=== PATIENT | female | born 1990 | race Caucasian/White ===

== ENCOUNTER 2019-09-24 13:46 | Emergency (ER) | payer OTHER, SELFPAY ==
[2019-09-24 13:59] VITALS: BP 133/86; PULSE 77; RESP 19; TEMP 36.6; O2SAT 100; BMI 23.1
[2019-09-24 14:03] LABS: Apearance,Urine Cloudy (Clear); Color,Urine Yellow (Yellow)
[2019-09-24 14:04] LABS: Glucose,Urine (UA) Negative (Negative); Ketones,Urine Negative (Negative)
[2019-09-24 14:05] LABS: Bilirubin,Urine Negative (Negative); Blood, Urine 2+ (Negative); Protein,Urine 1+ (Negative); UTC Leukocyte Esterase,Urine 3+ (Negative); UTC Nitrate,Urine Negative (Negative); Urobilinogen,Urine 0.2 EU/dl (0.2)
--- NOTE | 2019-09-24 14:13 | HMH.EDUTC ---
[facility] [place]ression: UTI (urinary tract infection) Qualifiers: Urinary tract infection type: site unspecified Hematuria presence: with hematuria Qualified Code(s): N39.0 - Urinary tract infection, site not specified Disposition: Home, Self-Care Condition on Discharge: Good Instructions: Urinary Tract Infection, DI for Urinary Tract Infection (UTI), Nitrofurantoin Additional Instructions: *Increase fluids. Water not Soda or Tea *Start antibiotic immediately and be sure to take as ordered for the FULL length of time although you should start to see improvement over the next 48 hours *Pyridium as needed Remember this medication will turn your urine [place]. This is normal but it will stain what ever it gets on *You should not use Pyridium for more than 48 hours. If so , follow up with your primary physician to review urine culture and ensure that antibiotic is adequate for infection *Be SURE to follow up anytime for new or worsening symptoms with your family doctor. AND in 48 hours for urine culture results with your family doctor, if you do not have a doctor then you may call back to the [facility] for urine culture results and further treatment. We do recommend that you choose and establish care with a Primary Care Physician. AND follow up with them in 10-14 days to repeat UA to ensure infection is resolved and blood no longer present *Be sure to let your PCP know that we sent urine cultures from the [facility] so they can follow up to ensure that you area the on the correct antibiotic Call your doctor office and make appointment for 48 hours (2 days from today) to follow up and get the results of your urine culture and further treatment Return if needed Straight to ER if any life threatening symptoms Prescriptions: Nitrofurantoin Monohyd/M-Cryst [Macrobid 100 mg Capsule] 100 mg PO BID 10 Days #20 cap Transmission Status: Received by [id number] Phenazopyridine HCl [Pyridium 200mg Tablet] 200 pow PO TID #6 tab Transmission Status: Received by [id number] Referrals: Saravanan Wagner MD [Primary Care Provider] - Medical Decision Making - Cal Inquiry Pt receiving controlled substance: No Cal was queried for this patient: No Vital Signs: 09/24/19 13:59 09/24/19 14:27 Temperature 97.8 F 97.8 F Temperature Source Oral Pulse Rate 77 Pulse Rate [Right Brachial] 77 Respiratory Rate 19 19 Blood Pressure 133/86 Blood Pressure [Right Arm] 133/86 Blood Pressure Mean [Right Arm] 101 Blood Pressure Source [Right Arm] Automatic Cuff Blood Pressure Position [Right Arm] Sitting 02 Sat by Pulse Oximetry 100 Oxygen Delivery Method Room Air - Lab Data Lab results reviewed: Yes: I reviewed the patient's lab results. Lab Results 09/24/19 13:49: Urine Color Yellow, Urine Appearance Cloudy, Urine pH 7.0, Ur Specific [place] 1.020, Urine Protein 1+, Urine Glucose (UA) Negative, Urine Ketones Negative, Urine Blood 2+, Urine Nitrate Negative, Urine Bilirubin Negative, Urine Urobilinogen 0.2, Ur Leukocyte Esterase 3+ A Orders (Tests/Meds): ED MEDICATIONS Discontinued Medications Generic Name Dose Route Start Last Admin Trade Name Freq PRN Reason Stop Dose Admin Ceftriaxone Sodium 1 gm 09/24/19 14:24 09/24/19 14:26 Rocephin 1gm Vial IM 09/24/19 14:25 1 gm ONCE ONE Administration Protocol Lidocaine HCl 0 ml 09/24/19 14:24 09/24/19 14:26 Lidocaine 1% 10ml Mdv IM 09/24/19 14:25 2.1 ml ONCE ONE Administration ORDERS Category Date Time Status Urine Culture Stat Micro 09/24/19 14:00 [place] [facility] [place] - General Stated complaint: uti Time Seen by Provider: 09/24/19 14:13 Mode of Arrival: Ambulatory Source of Information: Patient Limitations: No Limitations Description of Symptoms (Recalled from Triage Doc. by RN): PATIENT C/O BURNING WITH URINATION AND URINARY FREQUENCY SINCE SUNDAY HE Symptoms (Recalled from RN notes): No Resp Symptoms (
[2019-09-24 14:27] VITALS: BP 133/86; PULSE 77; RESP 19; TEMP 36.6; O2SAT 100
== END 2019-09-24 14:30 | disposition home or self-care (01) ==
PROVIDERS: Emergency Provider Nurse Practitioner; PCP Family Medicine
DX: N30.00 Acute cystitis without hematuria (principal)
CPT/HCPCS: 81003; 87086; 87088; 87186; 96372; 99202

== ENCOUNTER 2019-11-23 16:08 | Emergency (ER) | payer OTHER, SELFPAY ==
--- NOTE | 2019-11-23 16:41 | HMH.EDUTC ---
[facility] [place] Clinical Impression: UTI (urinary tract infection) Qualifiers: Urinary tract infection type: acute cystitis Hematuria presence: without hematuria Qualified Code(s): N30.00 - Acute cystitis without hematuria Disposition: Home, Self-Care Condition on Discharge: Good Instructions: DI for Urinary Tract Infection (UTI) Additional Instructions: Increase fluids. Follow up with Dr Wagner for culture results. Prescriptions: Ciprofloxacin HCl [Cipro 500mg Tab] 500 mg PO BID 5 Days #10 tab Transmission Status: Received by [id number] Phenazopyridine HCl [Pyridium 200mg Tablet] 200 pow PO TID #6 tab Transmission Status: Received by [id number] Referrals: Saravanan Wagner MD [Primary Care Provider] - Time of Disposition: 16:49 Medical Decision Making - Cal Inquiry Pt receiving controlled substance: No - Lab Data Lab results reviewed: Yes: I reviewed the patient's lab results. [facility] [place] - General Stated complaint: Possible UTI Time Seen by Provider: 11/23/19 16:41 - History of Present Illness Provider Complaint: Dysuria and frequency X 1 day. No fever. No nausea or vomiting. Onset (ago): day(s) (1) Associated symptoms: denies other symptoms Treatments prior to arrival: none - Related Data Previous Rx's Medication Instructions Recorded Nitrofurantoin Monohyd/M-Cryst 100 mg PO BID 10 Days #20 cap 09/24/19 [Macrobid 100 mg Capsule] Phenazopyridine HCl [Pyridium 200 pow PO TID #6 tab 09/24/19 200mg Tablet] Ciprofloxacin HCl [Cipro 500mg 500 mg PO BID 5 Days #10 tab 11/23/19 Tab] Phenazopyridine HCl [Pyridium 200 pow PO TID #6 tab 11/23/19 200mg Tablet] Allergies Allergy/AdvReac Type Severity Reaction Status Date / Time No Known Allergies Allergy Verified 11/25/18 14:58 [facility] History - Hepatitis A Screen Attestation statement:: This patient has been screened for Hepatitis A risk factors. I have reviewed the patient's past medical history: Yes Medical History: Denies:: Diabetes Mellitus Type 2, Hypertension Other Surgeries: Yes: - Social History Smoking Status: Never smoker Alcohol Intake: never Alcohol Intake Frequency:: a few times a month Substance Use Type: denies use Occupational Status: other Family Hx:: No significant family history ROS Obtained: Yes All systems reviewed & no additional complaints - Genitourinary Female Genitourinary: Reports dysuria Physical Exam - General General appearance: alert, in no apparent distress - Head Head exam: atraumatic, normocephalic - Respiratory Respiratory exam: Present: normal lung sounds bilaterally - Cardiovascular Cardiovascular exam: Present: regular rate, normal rhythm - Abdominal Exam Abdominal exam: Present: soft - Back Exam Back exam: Absent: CVA tenderness (R), CVA tenderness (L) - Neurological Exam Neurological exam: Present: alert, oriented X3 - Psychiatric Psychiatric exam: Present: normal affect, normal mood
[2019-11-23 16:45] VITALS: BP 138/83; PULSE 81; RESP 14; TEMP 37; O2SAT 99; BMI 22.8
[2019-11-23 16:57] VITALS: BP 138/83; PULSE 81; RESP 14; TEMP 37; O2SAT 99
[2019-11-23 18:32] LABS: Apearance,Urine Clear (Clear); Color,Urine Amber (Yellow); Specific Gravity, Urine 1.025 (1.005-1.030)
[2019-11-23 18:33] LABS: Bilirubin,Urine Negative (Negative); Blood, Urine Trace (Negative); Glucose,Urine (UA) Negative (Negative); Ketones,Urine TRACE (Negative); Protein,Urine 1+ (Negative); UTC Leukocyte Esterase,Urine Negative (Negative); Urobilinogen,Urine 1 EU/dl (0.2)
[2019-11-23 18:34] LABS: UTC Nitrate,Urine Positive (Negative)
== END 2019-11-23 17:03 | disposition home or self-care (01) ==
PROVIDERS: Emergency Provider Physician Assistant; PCP Family Medicine
DX: N30.00 Acute cystitis without hematuria (principal)
CPT/HCPCS: 81003; 87086; 99201

== ENCOUNTER → 2020-01-09 09:16 | Outpatient (CLI) | payer OTHER, SELFPAY ==
[2020-01-09 10:44] LABS: HCG Qualitative, Serum Negative (Negative)
[2020-01-10 10:16] LABS: Hep A Ab, IgM Negative (Negative); Hepatitis B Core Antibody IgM Negative (Negative); Hepatitis B Surface Antigen Negative (Negative)
[2020-01-10 14:54] LABS: HIV Screen 4th Generation wRfx Non Reactive (Non Reactive); HSV 1 IgG, Type Spec <0.91 index (0.00-0.90); HSV 2 IgG, Type Spec <0.91 index (0.00-0.90); Hepatitis C Antibody <0.1 s/co ratio (0.0-0.9); Rapid Plasma Reagin Ab Titer Non Reactive (NonRea<1:1)
[2020-01-13 15:21] LABS: Neisseria gonorrhoeae, NAA Negative (Negative)
[2020-01-15 09:24] LABS: HSV, IgM I/II Combination <0.91 Ratio (0.00-0.90)
== END ==
PROVIDERS: Visit Provider Nurse Practitioner Obstetrics & Gynecology
DX: Z34.90 Encounter for supervision of normal pregnancy, unspecified, unspecified trimester (principal); Z72.51 High risk heterosexual behavior
CPT/HCPCS: 80074; 84703; 86592; 86695; 86703; 86790; 87491; 87591; G0432

== ENCOUNTER 2020-01-21 18:32 | Emergency (ER) | payer OTHER, SELFPAY ==
[2020-01-21 18:42] VITALS: BP 136/83; PULSE 81; RESP 20; TEMP 36.7; O2SAT 97; BMI 23.9
[2020-01-21 18:51] LABS: Apearance,Urine Clear (Clear); Bilirubin,Urine Negative (Negative); Blood, Urine Negative (Negative); Color,Urine Yellow (Yellow); Glucose,Urine (UA) Negative (Negative); Ketones,Urine Negative (Negative); Protein,Urine Negative (Negative); UTC Leukocyte Esterase,Urine 1+ (Negative); UTC Nitrate,Urine Positive (Negative); Urobilinogen,Urine 0.2 EU/dl (0.2)
--- NOTE | 2020-01-21 19:09 | HMH.EDUTC ---
[facility] [place] Clinical Impression: UTI (urinary tract infection) Qualifiers: Urinary tract infection type: site unspecified Hematuria presence: with hematuria Qualified Code(s): N39.0 - Urinary tract infection, site not specified Disposition: Home, Self-Care Condition on Discharge: Good Instructions: DI for Urinary Tract Infection (UTI) Additional Instructions: Drink plenty of fluids. Take tylenol for pain or fever. Return if you begin to have difficulty breathing. Follow up with your regular doctor. GO TO THE ER FOR ANY WORSENING SYMPTOMS The pyridium will make your urine turn orange, this is an expected side effect. It will stain your clothes if it comes into contact with them. Prescriptions: Ondansetron [Zofran 4mg ODT] 4 mg PO Q8HP PRN #12 tab.rapdis PRN Reason: Nausea Transmission Status: Received by [facility] Sulfamethoxazole/Trimethoprim [Bactrim DS tablet] 1 each PO BID 7 Days #14 tab Transmission Status: Received by [facility] Phenazopyridine HCl [Pyridium 200mg Tablet] 200 pow PO TID #6 tab Transmission Status: Received by [facility] Referrals: Saravanan Wagner MD [Primary Care Provider] - Time of Disposition: 19:17 Medical Decision Making - Medical Records Medical records reviewed: No: I reviewed the patient's medical records. - Cal Inquiry Pt receiving controlled substance: No Vital Signs: 01/21/20 18:42 Temperature 98.0 F Temperature Source Oral Pulse Rate [Radial] 81 Respiratory Rate 20 Blood Pressure [Right Arm] 136/83 Blood Pressure Mean [Right Arm] 100 Blood Pressure Source [Right Arm] Automatic Cuff Blood Pressure Position [Right Arm] Sitting 02 Sat by Pulse Oximetry 97 Oxygen Delivery Method Room Air - Lab Data Lab results reviewed: Yes: I reviewed the patient's lab results. Lab Results 01/21/20 18:36: Urine Color Yellow, Urine Appearance Clear, Urine pH 6.0, Ur Specific [place] 1.010, Urine Protein Negative, Urine Glucose (UA) Negative, Urine Ketones Negative, Urine Blood Negative, Urine Nitrate Positive A, Urine Bilirubin Negative, Urine Urobilinogen 0.2, Ur Leukocyte Esterase 1+ A Orders (Tests/Meds): ORDERS Category Date Time Status Urine Culture Stat Micro 01/21/20 19:07 Ordered [facility] [place] HPI - General Stated complaint: Burning when urinating Time Seen by Provider: 01/21/20 19:09 Mode of Arrival: Ambulatory Source of Information: Patient Limitations: No Limitations Description of Symptoms (Recalled from Triage Doc. by RN): Possible uti. Burning with urination HEENT Symptoms (Recalled from RN notes): No Resp Symptoms (Recalled from RN notes): No Skin Symptoms (Recalled from RN notes): No MS Symptoms (Recalled from RN notes): No Functional Status (Recalled from RN notes): wnl - History of Present Illness Provider Complaint: She c/o low back pain and dysuria since yesterday. She has a history of getting uti's fairly frequently. - Related Data Home Medications Medication Instructions Recorded Confirmed levonorgestrel-ethinyl estradiol 1 tab PO DAILY tab 01/09/20 01/09/20 0.1 mg-20 mcg tablet sertraline 100 mg tablet 100 mg PO DAILY 01/09/20 01/09/20 Previous Rx's Medication Instructions Recorded valacyclovir 1 gram tablet 1,000 mg PO BID 10 Days #20 tab 01/09/20 valacyclovir 500 mg tablet 500 mg PO DAILY #30 tab 01/09/20 Ondansetron [Zofran 4mg ODT] 4 mg PO Q8HP PRN #12 tab.rapdis 01/21/20 Phenazopyridine HCl [Pyridium 200 pow PO TID #6 tab 01/21/20 200mg Tablet] Sulfamethoxazole/Trimethoprim 1 each PO BID 7 Days #14 tab 01/21/20 [Bactrim DS tablet] Allergies Allergy/AdvReac Type Severity Reaction Status Date / Time peanut Allergy Intermediate Hives, Verified 01/09/20 08:54 Itchy throat corn Allergy Verified 01/09/20 08:54 wheat Allergy Verified 01/09/20 08:54 - Worker's Comp Is this a Worker's Comp case?: No [facility] History - He
[2020-01-21 19:20] VITALS: BP 136/83; PULSE 81; RESP 20; TEMP 36.7; O2SAT 97
== END 2020-01-21 19:21 | disposition home or self-care (01) ==
PROVIDERS: Emergency Provider Nurse Practitioner Family; PCP Family Medicine
DX: N30.00 Acute cystitis without hematuria (principal)
CPT/HCPCS: 81003; 87086; 99201

== ENCOUNTER 2020-07-05 10:23 | Emergency (ER) | payer OTHER, SELFPAY ==
[2020-07-05 10:30] VITALS: BP 133/90; PULSE 83; RESP 18; TEMP 37.1; O2SAT 99; BMI 23.3
[2020-07-05 10:48] LABS: UTC Strep Screen (Rapid) Negative (Negative)
--- NOTE | 2020-07-05 10:48 | HMH.EDUTC ---
[facility] [place] Clinical Impression: Strep throat exposure, Sore throat Disposition: Home, Self-Care Condition on Discharge: Good Instructions: DI for Strep Throat Additional Instructions: Start antibiotics today be sure to take it as ordered with the full length of time although you should start feeling better in 24-48 hours. Change toothbrush and toothpaste 24-48 hours after starting antibiotics Tylenol or Motrin as needed for fever or pain Encourage fluids, water, Gatorade, Powerade, try cold fluids, popsicles, ice cream will make it feel better You are contagious for 24 hours. Avoid kissing anyone, no eating or drinking after anyone. You are contagious. Follow-up the ER for new or worsening symptoms or no noticeable improvement over the next 24-48 hours. Follow-up with PCP this week. Prescriptions: Azithromycin [Zithromax 250mg tab] 250 mg PO DIRECTED #6 tab Transmission Status: Pending to [facility] Referrals: Saravanan Wagner MD [Primary Care Provider] - Time of Disposition: 10:54 Medical Decision Making - Cal Inquiry Pt receiving controlled substance: No Vital Signs: 07/05/20 10:30 Temperature 98.7 F Temperature Source Oral Pulse Rate [Right Brachial] 83 Respiratory Rate 18 Blood Pressure [Right Arm] 133/90 Blood Pressure Mean [Right Arm] 104 Blood Pressure Source [Right Arm] Automatic Cuff Blood Pressure Position [Right Arm] Sitting 02 Sat by Pulse Oximetry 99 Oxygen Delivery Method Room Air [facility] [place] HPI - General Chief complaint: Urgent Treatment Center Stated complaint: sore throat Time Seen by Provider: 07/05/20 10:48 Mode of Arrival: Ambulatory Source of Information: Patient Limitations: No Limitations Description of Symptoms (Recalled from Triage Doc. by RN): PATIENT C/O HEADACHE AND SORE THROAT SINCE SUNDAY. RECENTLY EXPOSED TO STREP HEENT Symptoms (Recalled from RN notes): Yes Resp Symptoms (Recalled from RN notes): No Skin Symptoms (Recalled from RN notes): No MS Symptoms (Recalled from RN notes): No Functional Status (Recalled from RN notes): WNL - History of Present Illness Provider Complaint: 29 yr old female presents for sore throat and headache since sunday. pt states her kid was dx with strep last week and one today - Related Data Home Medications Medication Instructions Recorded Confirmed levonorgestrel-ethinyl estradiol 1 tab PO DAILY tab 01/09/20 01/09/20 0.1 mg-20 mcg tablet sertraline 100 mg tablet 100 mg PO DAILY 01/09/20 01/09/20 Previous Rx's Medication Instructions Recorded valacyclovir 1 gram tablet 1,000 mg PO BID 10 Days #20 tab 01/09/20 valacyclovir 500 mg tablet 500 mg PO DAILY #30 tab 01/09/20 Ondansetron [Zofran 4mg ODT] 4 mg PO Q8HP PRN #12 tab.rapdis 01/21/20 Phenazopyridine HCl [Pyridium 200 pow PO TID #6 tab 01/21/20 200mg Tablet] Sulfamethoxazole/Trimethoprim 1 each PO BID 7 Days #14 tab 01/21/20 [Bactrim DS tablet] Azithromycin [Zithromax 250mg 250 mg PO DIRECTED #6 tab 07/05/20 tab] Allergies Allergy/AdvReac Type Severity Reaction Status Date / Time peanut Allergy Intermediate Hives, Verified 01/09/20 08:54 Itchy throat corn Allergy Verified 01/09/20 08:54 wheat Allergy Verified 01/09/20 08:54 - Worker's Comp Is this a Worker's Comp case?: No [facility] History - Hepatitis A Screen Drug use history?: No High risk sexual behaviors?: No History of sexually transmitted infection?: No Currently employed?: No Childcare worker?: No Do you have indoor plumbing?: Yes Do you have electricity?: Yes Attestation statement:: This patient has been screened for Hepatitis A risk factors. I have reviewed the patient's past medical history: Yes Medical History: Denies:: Diabetes Mellitus Type 2, Hypertension Other Surgeries: Yes: - Social History Smoking Status: Never smoker Alcohol Intake: never Alcohol Intake Frequency:: a few times a month Substance Use
[2020-07-05 11:05] VITALS: BP 133/90; PULSE 83; RESP 18; TEMP 37.1; O2SAT 99
== END 2020-07-05 11:07 | disposition home or self-care (01) ==
PROVIDERS: Emergency Provider Nurse Practitioner Family; PCP Family Medicine
DX: J02.9 Acute pharyngitis, unspecified (principal)
CPT/HCPCS: 87880; 99202; G0463

== ENCOUNTER 2020-08-07 09:24 | Emergency (ER) | payer OTHER, SELFPAY ==
[2020-08-07 09:25] VITALS: BP 140/87; PULSE 88; RESP 19; TEMP 36.8; O2SAT 98; BMI 25.1
[2020-08-07 09:48] LABS: UTC Strep Screen (Rapid) Negative (Negative)
--- NOTE | 2020-08-07 09:49 | HMH.EDUTC ---
[facility] [place]ression: URI (upper respiratory infection) Qualifiers: URI type: unspecified URI Qualified Code(s): J06.9 - Acute upper respiratory infection, unspecified Disposition: Home, Self-Care Condition on Discharge: Good Instructions: DI for Strep Throat, Sore Throat, DI for Ear Pain-Adult Additional Instructions: *Monitor Temp, Over the counter Motrin or Tylenol as directed/as needed Tylenol every 4 hours and Motrin every 6 hours (as long as your family doctor has told you that you can take it) for fever or pain. and straight to ER if unable to lower temp less than 101.0 after medication given *Warm salt water gargles may help to soothe the throat *Throat Lozenges *Warm fluids like tea with honey may help to soothe the throat *Sleep elevated *Humidifier/Vaporizer Your throat swab was sent for culture. Those results are typically sent to your primary care. Be sure to follow up in 2-3 days with your family doctor/primary care physician if no improvement so they can review those result and treat if necessary. If you don?t have a primary care doctor, I recommend you get one but in the mean time, you will have to return to a walk in clinic Follow up IMMEDIATELY for new or worsening symptoms or no Noticeable improvement over the next 48-72 hours. 911 for difficulty breathing or swallowing Prescriptions: Fluticasone Propionate [Flonase 50mcg nasal spray 16gm] 1 spr NS DAILY #1 bottle Transmission Status: Pending to [facility] Cefdinir [Omnicef 300mg Capsule] 300 mg PO BID #20 cap Transmission Status: Pending to [facility] Referrals: Saravanan Wagner MD [Primary Care Provider] - As needed Time of Disposition: 09:55 Medical Decision Making - Cal Inquiry Pt receiving controlled substance: No Cal was queried for this patient: No Vital Signs: 08/07/20 09:25 Temperature 98.2 F Temperature Source Oral Pulse Rate [Right Brachial] 88 Respiratory Rate 19 Blood Pressure [Right Arm] 140/87 Blood Pressure Mean [Right Arm] 104 Blood Pressure Source [Right Arm] Automatic Cuff Blood Pressure Position [Right Arm] Sitting 02 Sat by Pulse Oximetry 98 Oxygen Delivery Method Room Air - Lab Data Lab results reviewed: Yes: I reviewed the patient's lab results. Lab Results 08/07/20 09:30: Strep Scn Rapid Clinic Negative Orders (Tests/Meds): ORDERS Category Date Time Status Strep Screen Confirmation Stat Micro 08/07/20 09:30 Received Medical Decision Narrative: Patient rapid strep negative however patient has white patchy like area noted on left side of throat therefore will treat as if strep test positive [facility] [place] General Stated complaint: sore throat Time Seen by Provider: 08/07/20 09:49 Mode of Arrival: Ambulatory Source of Information: Patient Limitations: No Limitations Description of Symptoms (Recalled from Triage Doc. by RN): PATIENT C/O SORE THROAT (LEFT SIDE) HEENT Symptoms (Recalled from RN notes): Yes Resp Symptoms (Recalled from RN notes): No Skin Symptoms (Recalled from RN notes): No MS Symptoms (Recalled from RN notes): No Functional Status (Recalled from RN notes): WNL - History of Present Illness Provider Complaint: Patient states that she has been having pain in her left ear for over a week and having sore throat that was worse on left side of throat State that it has continued to get worse and today felt like she was swallowing glass and still having pain in her left ear - Related Data Previous Rx's Medication Instructions Recorded Cefdinir [Omnicef 300mg Capsule] 300 mg PO BID #20 cap 08/07/20 Fluticasone Propionate [Flonase 1 spr NS DAILY #1 bottle 08/07/20 50mcg nasal spray 16gm] Allergies Allergy/AdvReac Type Severity Reaction Status Date / Time peanut Allergy Intermediate Hives, Verified 01/09/20 08:54 Itchy throat corn Allergy Verified 01/09/20 08:54 wheat Allergy Verified 01/09/20 08:5
[2020-08-07 10:02] VITALS: BP 140/87; PULSE 88; RESP 19; TEMP 36.8; O2SAT 98
== END 2020-08-07 10:05 | disposition home or self-care (01) ==
PROVIDERS: Emergency Provider Nurse Practitioner; PCP Family Medicine
DX: J06.9 Acute upper respiratory infection, unspecified (principal); J02.9 Acute pharyngitis, unspecified
CPT/HCPCS: 87880; 99202; G0463

== ENCOUNTER 2020-10-28 11:21 | Emergency (ER) | payer OTHER, SELFPAY ==
[2020-10-28 13:02] VITALS: BP 123/74; PULSE 59; RESP 16; TEMP 36.9; O2SAT 100; BMI 24.7
[2020-10-28 13:05] VITALS: BP 123/74; PULSE 59; RESP 18; TEMP 36.9
--- NOTE | 2020-10-28 13:21 | HMH.EDUTC ---
[facility] – [place] Disposition Clinical Impression: Viral syndrome, Exposure to COVID-19 virus Disposition: Home, Self-Care Condition on Discharge: Good Instructions: DI for Viral Syndrome, DI for COVID-19 (Suspected or Confirmed ), Preventing the Spread of Coronavirus Discharge Instructions Additional Instructions: Drink plenty of fluids. Take tylenol for pain or fever. Return if you begin to have difficulty breathing. Follow up with your regular doctor. GO TO THE ER FOR ANY WORSENING SYMPTOMS Quarantine until you know the results of your covid-19 test. If it is positive, the health department should call you and give you further instructions about your length of Quarantine and other things. Notify your school or workplace of your results and follow their instructions regarding return to work/school. Referrals: Saravanan Wagner MD [Primary Care Provider] - Forms: Work/School Release Time of Disposition: 13:26 Medical Decision Making - Medical Records Medical records reviewed: No: I reviewed the patient's medical records. - Cal Inquiry Pt receiving controlled substance: No Vital Signs: 10/28/20 13:02 10/28/20 13:05 Temperature 98.4 F 98.4 F Temperature Source Oral Pulse Rate 59 L Pulse Rate [Left] 59 L Respiratory Rate 16 18 Blood Pressure 123/74 Blood Pressure [Right Arm] 123/74 Blood Pressure Mean [Right Arm] 90 02 Sat by Pulse Oximetry 100 [facility] [place] HPI - General Stated complaint: covid test/symptoms Time Seen by Provider: 10/28/20 13:21 Mode of Arrival: Ambulatory Source of Information: Patient Limitations: No Limitations Description of Symptoms (Recalled from Triage Doc. by RN): pt was exposed to covid HEENT Symptoms (Recalled from RN notes): No Resp Symptoms (Recalled from RN notes): No Skin Symptoms (Recalled from RN notes): No MS Symptoms (Recalled from RN notes): No Functional Status (Recalled from RN notes): na - History of Present Illness Provider Complaint: Her child was diagnosed with rhinovirus last week. She developed similar symptoms after her child was diagnosed, so she thought that she just had a cold. But, yesterday she found out that she has been exposed to covid-19 also, so she needs to be tested for this to make sure she is carrying covid around. She states that her symptoms are almost better. Onset (ago): hour(s) - Related Data Home Medications Medication Instructions Recorded Confirmed levonorgestrel-ethinyl estradiol 1 tab PO tab 10/19/20 10/19/20 0.1 mg-20 mcg tablet Previous Rx's Medication Instructions Recorded Fluticasone Propionate [Flonase 1 spr NS DAILY #1 bottle 08/07/20 50mcg nasal spray 16gm] Allergies Allergy/AdvReac Type Severity Reaction Status Date / Time peanut Allergy Intermediate Hives, Verified 10/19/20 09:17 Itchy throat corn Allergy Verified 10/19/20 09:17 wheat Allergy Verified 10/19/20 09:17 - Worker's Comp Is this a Worker's Comp case?: No [facility] History - Hepatitis A Screen Drug use history?: No High risk sexual behaviors?: No History of sexually transmitted infection?: No Currently employed?: No Childcare worker?: No Do you have indoor plumbing?: Yes Do you have electricity?: Yes Attestation statement:: This patient has been screened for Hepatitis A risk factors. I have reviewed the patient's past medical history: Yes Medical History: Denies:: Diabetes Mellitus Type 2, Hypertension Other Surgeries: Yes: - Social History Smoking Status: Never smoker Alcohol Intake: never Alcohol Intake Frequency:: a few times a month Substance Use Type: denies use Occupational Status: other Family Hx:: No significant family history ROS Obtained: Yes All systems reviewed & no additional complaints - Constitutional Constitutional: Reports system reviewed and no additional complaints, except as docu - Eyes Eyes: Reports system reviewed and no additional complaints, except as doc
--- NOTE | 2020-10-29 09:45 | PC.NURSE ---
notified pt of positive covid test result
== END 2020-10-28 13:38 | disposition home or self-care (01) ==
PROVIDERS: Emergency Provider Nurse Practitioner Family; PCP Family Medicine
DX: B34.9 Viral infection, unspecified (principal); Z20.822 Contact with and (suspected) exposure to COVID-19
CPT/HCPCS: 99202; G0463; U0003

== ENCOUNTER 2021-02-17 10:10 | Emergency (ER) | payer OTHER, SELFPAY ==
[2021-02-17 10:59] VITALS: BP 124/83; PULSE 64; RESP 18; TEMP 37.1; O2SAT 100; BMI 22.4
--- NOTE | 2021-02-17 11:40 | HMH.EDUTC ---
[facility] [place] Disposition Clinical Impression: Viral syndrome, Exposure to COVID-19 virus Sinusitis Qualifiers: Sinusitis location: unspecified location Chronicity: acute Recurrence: non-recurrent Qualified Code(s): J01.90 - Acute sinusitis, unspecified Disposition: Home, Self-Care Condition on Discharge: Good Instructions: DI for Sinusitis, DI for COVID-19 (Suspected or Confirmed ), Preventing the Spread of Coronavirus Discharge Instructions Additional Instructions: Drink plenty of fluids. Take tylenol or ibuprofen for pain or fever. Take the medications as directed. Follow up with your regular doctor. GO TO THE ER FOR ANY WORSENING SYMPTOMS Quarantine until you know the results of your covid-19 test. If it is positive, the health department should call you and give you further instructions about your length of Quarantine and other things. Notify your school or workplace of your results and follow their instructions regarding return to work/school. Prescriptions: Brompheniramine/Pseudoephed/Dm [Bromfed Dm Cough Syrup] 5 ml PO Q6HP PRN #240 ml PRN Reason: Cough Transmission Status: Received by [facility] methylPREDNISolone [Medrol] 4 mg PO DIRECTED 6 Days #21 packet Transmission Status: Received by [facility] Azithromycin [Z-Shimon 250mg Tab*] 250 mg PO UD DOSE PK #6 tab Transmission Status: Received by [facility] Referrals: Saravanan Wagner MD [Primary Care Provider] - Forms: Work/School Release Time of Disposition: 12:18 Medical Decision Making - Medical Records Medical records reviewed: No: I reviewed the patient's medical records. - Cal Inquiry Pt receiving controlled substance: No Vital Signs: 02/17/21 10:59 02/17/21 12:31 Temperature 98.7 F 98.7 F Temperature Source Oral Pulse Rate 64 Pulse Rate [Right] 64 Respiratory Rate 18 18 Blood Pressure 124/83 Blood Pressure [Right Arm] 124/83 Blood Pressure Mean [Right Arm] 96 02 Sat by Pulse Oximetry 100 - Lab Data Lab results reviewed: Yes: I reviewed the patient's lab results. Lab Results 02/17/21 11:52: Strep Scn Rapid Clinic Negative Orders (Tests/Meds): ORDERS Category Date Time Status Strep Screen Confirmation Routine Micro 02/17/21 11:52 Received [facility] [place] HPI - General Stated complaint: congestion, h/a, body aches Time Seen by Provider: 02/17/21 11:40 Mode of Arrival: Ambulatory Source of Information: Patient Limitations: No Limitations Description of Symptoms (Recalled from Triage Doc. by RN): pt c/o a COLE, congestion, nasal drainage, and body aches since yesterday. pt was exposed to covid positive boss. pt was covid positive herself in october. HEENT Symptoms (Recalled from RN notes): Yes (COLE and congestion/drainage) Resp Symptoms (Recalled from RN notes): No Skin Symptoms (Recalled from RN notes): No MS Symptoms (Recalled from RN notes): No Functional Status (Recalled from RN notes): wnl - History of Present Illness Provider Complaint: She states that for the past 2 days she has been getting more congestion in her sinuses and chest. She also has had body aches and chilling, but no documented fever. She was exposed to covid-19 5 days ago. She had covid-19 back at the last of September and first of October. She states that she does not feel like she did when she had covid-19. She has not been vaccinated against covid-19. - Related Data Home Medications Medication Instructions Recorded Confirmed levonorgestrel-ethinyl estradiol 1 tab PO tab 10/19/20 10/19/20 0.1 mg-20 mcg tablet Previous Rx's Medication Instructions Recorded Fluticasone Propionate [Flonase 1 spr NS DAILY #1 bottle 08/07/20 50mcg nasal spray 16gm] Azithromycin [Z-Shimon 250mg Tab*] 250 mg PO UD DOSE PK #6 tab 02/17/21 Brompheniramine/Pseudoephed/Dm 5 ml PO Q6HP PRN #240 ml 02/17/21 [Bromfed Dm Cough Syrup] methylPREDNISolone [Medrol] 4 mg PO DIRECTED 6 Days #21 02/17/21 packe
[2021-02-17 11:59] LABS: UTC Strep Screen (Rapid) Negative (Negative)
[2021-02-17 12:31] VITALS: BP 124/83; PULSE 64; RESP 18; TEMP 37.1
== END 2021-02-17 12:32 | disposition home or self-care (01) ==
PROVIDERS: Emergency Provider Nurse Practitioner Family; PCP Family Medicine
DX: J02.0 Streptococcal pharyngitis (principal); Z20.822 Contact with and (suspected) exposure to COVID-19
CPT/HCPCS: 87880; 99203; C9803; G0463; U0003; U0005

== ENCOUNTER 2021-05-05 10:22 | Emergency (ER) | payer OTHER, SELFPAY ==
[2021-05-05 11:00] VITALS: BP 133/87; PULSE 71; RESP 18; TEMP 36.9; O2SAT 96; BMI 22.1
[2021-05-05 11:21] VITALS: BP 133/87; PULSE 71; RESP 18; TEMP 36.9; O2SAT 96
--- NOTE | 2021-05-05 11:24 | HMH.EDUTC ---
[facility] [place] Disposition Clinical Impression: Encounter for laboratory testing for COVID-19 virus Disposition: Home, Self-Care Condition on Discharge: Good Instructions: DI for COVID-19 (Suspected or Confirmed ), Preventing the Spread of Coronavirus Discharge Instructions Additional Instructions: You were tested for today for COVID19 your test result should be back in the next 24-48 hours, you may check your results on the [facility] my Health P Make sure to take your Vitamins Vit. C Vit D and Zinc if you can take them Referrals: Saravanan Wagner MD [Primary Care Provider] - As needed Time of Disposition: 11:26 Medical Decision Making - Cal Inquiry Pt receiving controlled substance: No Cal was queried for this patient: No Vital Signs: 05/05/21 11:00 05/05/21 11:21 Temperature 98.4 F 98.4 F Temperature Source Oral Pulse Rate 71 Pulse Rate [Right Brachial] 71 Respiratory Rate 18 18 Blood Pressure 133/87 Blood Pressure [Right Arm] 133/87 Blood Pressure Mean [Right Arm] 102 Blood Pressure Source [Right Arm] Automatic Cuff Blood Pressure Position [Right Arm] Sitting 02 Sat by Pulse Oximetry 96 Oxygen Delivery Method Room Air [facility] [place] HPI - General Stated complaint: needs covid test Time Seen by Provider: 05/05/21 11:24 Mode of Arrival: Ambulatory Source of Information: Patient Limitations: No Limitations Description of Symptoms (Recalled from Triage Doc. by RN): COVID TEST HEENT Symptoms (Recalled from RN notes): No Resp Symptoms (Recalled from RN notes): No Skin Symptoms (Recalled from RN notes): No MS Symptoms (Recalled from RN notes): No Functional Status (Recalled from RN notes): WNL - History of Present Illness Provider Complaint: Patient states that she has to get COVID test for a concert tomorrow so she came in to get a test denies any symptoms - Related Data Home Medications Medication Instructions Recorded Confirmed levonorgestrel-ethinyl estradiol 1 tab PO tab 10/19/20 10/19/20 0.1 mg-20 mcg tablet Previous Rx's Medication Instructions Recorded Fluticasone Propionate [Flonase 1 spr NS DAILY #1 bottle 08/07/20 50mcg nasal spray 16gm] Azithromycin [Z-Shimon 250mg Tab*] 250 mg PO UD DOSE PK #6 tab 02/17/21 Brompheniramine/Pseudoephed/Dm 5 ml PO Q6HP PRN #240 ml 02/17/21 [Bromfed Dm Cough Syrup] methylPREDNISolone [Medrol] 4 mg PO DIRECTED 6 Days #21 02/17/21 packet Allergies Allergy/AdvReac Type Severity Reaction Status Date / Time peanut Allergy Intermediate Hives, Verified 10/19/20 09:17 Itchy throat corn Allergy Verified 10/19/20 09:17 wheat Allergy Verified 10/19/20 09:17 - Worker's Comp Is this a Worker's Comp case?: No [facility] History - Hepatitis A Screen Drug use history?: No High risk sexual behaviors?: No History of sexually transmitted infection?: No Currently employed?: No Childcare worker?: No Do you have indoor plumbing?: Yes Do you have electricity?: Yes Attestation statement:: This patient has been screened for Hepatitis A risk factors. I have reviewed the patient's past medical history: Yes Medical History: Denies:: Diabetes Mellitus Type 2, Hypertension Other Surgeries: Yes: - Social History Smoking Status: Never smoker Alcohol Intake: never Alcohol Intake Frequency:: a few times a month Substance Use Type: denies use Occupational Status: other Family Hx:: No significant family history ROS Obtained: Yes All systems reviewed & no additional complaints, Yes Systems reviewed as appropriate & no additional complaints - Constitutional Constitutional: Reports system reviewed and no additional complaints, except as docu, Denies body ache, Denies chills, Denies fever(s) - ENT Ears, Nose, Mouth, and Throat: Reports system reviewed and no additional complaints, except as docu - Cardiovascular Cardiovascular: Reports system reviewed and no additional complaints, except as docu - Respiratory Respiratory: Rep
== END 2021-05-05 11:25 | disposition home or self-care (01) ==
PROVIDERS: Emergency Provider Nurse Practitioner; PCP Family Medicine
DX: Z03.89 Encounter for observation for other suspected diseases and conditions ruled out (principal); Z20.822 Contact with and (suspected) exposure to COVID-19; Z79.52 Long term (current) use of systemic steroids; Z79.3 Long term (current) use of hormonal contraceptives; Z79.899 Other long term (current) drug therapy; Z88.0 Allergy status to penicillin; Z88.5 Allergy status to narcotic agent; Z88.6 Allergy status to analgesic agent; Z91.018 Allergy to other foods
CPT/HCPCS: 99282; C9803; U0003; U0005

== ENCOUNTER 2021-08-29 09:51 | Emergency (ER) | payer OTHER, SELFPAY ==
[2021-08-29 10:00] VITALS: BP 127/76; PULSE 77; RESP 20; TEMP 36.9; O2SAT 100; BMI 20.9
--- NOTE | 2021-08-29 10:27 | HMH.EDUTC ---
[facility] [place] Disposition Clinical Impression: Viral upper respiratory illness Disposition: Home, Self-Care Condition on Discharge: Good Instructions: DI for Viral Upper Respiratory Infection -- Adult Additional Instructions: *Monitor Temp, Over the counter Motrin or Tylenol as directed/as needed Tylenol every 4 hours and Motrin every 6 hours (as long as your family doctor has told you that you can take it) for fever or pain. and straight to ER if unable to lower temp less than 101.0 after medication given *Warm salt water gargles may help to soothe the throat *Throat Lozenges *Warm fluids like tea with honey may help to soothe the throat *Sleep elevated *Humidifier/Vaporizer Your throat swab was sent for culture. Those results are typically sent to your primary care. Be sure to follow up in 2-3 days with your family doctor/primary care physician if no improvement so they can review those result and treat if necessary. If you don?t have a primary care doctor, I recommend you get one but in the mean time, you will have to return to a walk in clinic Follow up IMMEDIATELY for new or worsening symptoms or no Noticeable improvement over the next 48-72 hours. 911 for difficulty breathing or swallowing Referrals: Cynthia Pate PA [Primary Care Provider] - As needed Time of Disposition: 10:41 Medical Decision Making - Cal Inquiry Pt receiving controlled substance: No Cal was queried for this patient: No Vital Signs: 08/29/21 10:00 Temperature 98.5 F Temperature Source Temporal Artery Scan Pulse Rate [Right Brachial] 77 Respiratory Rate 20 Blood Pressure [Right Arm] 127/76 Blood Pressure Mean [Right Arm] 93 Blood Pressure Source [Right Arm] Automatic Cuff Blood Pressure Position [Right Arm] Sitting 02 Sat by Pulse Oximetry 100 Oxygen Delivery Method Room Air - Lab Data Lab results reviewed: Yes: I reviewed the patient's lab results. Orders (Tests/Meds): ORDERS Category Date Time Status Rapid Strep Scrn Group A [Strep Scrn Group A (Rapid)] Lab 08/29/21 10:00 Received Stat [facility] [place] HPI - General Stated complaint: sore throat, congestion Time Seen by Provider: 08/29/21 10:27 Mode of Arrival: Ambulatory Source of Information: Patient Limitations: No Limitations Description of Symptoms (Recalled from Triage Doc. by RN): PATIENT C/O SORE THROAT, CONGESTION AND RUNNY NOSE SINCE YESTERDAY. HER SON HAS STREP HEENT Symptoms (Recalled from RN notes): Yes Resp Symptoms (Recalled from RN notes): No Skin Symptoms (Recalled from RN notes): No MS Symptoms (Recalled from RN notes): No Functional Status (Recalled from RN notes): WNL - History of Present Illness Provider Complaint: Patient states that she started feeling bad yesterday States that she has been having sore throat and sinus congestion States that she thought it may be allergies but wanted to get checked to make sure that it isnt strep throat - Related Data Home Medications Medication Instructions Recorded Confirmed levonorgestrel-ethinyl estradiol 1 tab PO tab 10/19/20 07/29/21 0.1 mg-20 mcg tablet Allergies Allergy/AdvReac Type Severity Reaction Status Date / Time peanut Allergy Intermediate Hives, Verified 07/29/21 11:37 Itchy throat corn Allergy Verified 07/29/21 11:37 wheat Allergy Verified 07/29/21 11:37 - Worker's Comp Is this a Worker's Comp case?: No [facility] History - Hepatitis A Screen Attestation statement:: This patient has been screened for Hepatitis A risk factors. I have reviewed the patient's past medical history: Yes Medical History: Denies:: Diabetes Mellitus Type 2, Hypertension Other Surgeries: Yes: Amputation: No Fractures: No - Social History Smoking Status: Never smoker Alcohol Intake: never Alcohol Intake Frequency:: a few times a month Substance Use Type: denies use Occupational Status: other Family Hx:: No significant family history ROS Obtained: Yes All systems r
[2021-08-29 10:37] LABS: Strep Scrn Group A (Rapid) Negative (Negative)
[2021-08-29 10:43] VITALS: BP 127/76; PULSE 77; RESP 20; TEMP 36.9; O2SAT 100
== END 2021-08-29 10:46 | disposition home or self-care (01) ==
PROVIDERS: Emergency Provider Nurse Practitioner; PCP Physician Assistant
DX: J06.9 Acute upper respiratory infection, unspecified (principal)
CPT/HCPCS: 87430; 99212; G0463

== ENCOUNTER 2021-10-18 09:24 | Emergency (ER) | payer OTHER, SELFPAY ==
[2021-10-18 09:44] VITALS: BP 118/86; PULSE 71; RESP 17; TEMP 37.3; O2SAT 99
[2021-10-18 09:47] LABS: UTC Strep Screen (Rapid) Positive (Negative)
--- NOTE | 2021-10-18 09:55 | HMH.EDUTC ---
[facility] [place] Disposition Clinical Impression: Strep throat Disposition: Home, Self-Care Condition on Discharge: Good Instructions: DI for Strep Throat, Strep Throat Additional Instructions: Drink plenty of fluids. Take tylenol or ibuprofen for pain or fever. Take the medications as directed. Follow up with your regular doctor. GO TO THE ER FOR ANY WORSENING SYMPTOMS Throw your tooth brush away and get a new one. Prescriptions: Brompheniramine/Pseudoephed/Dm [Bromfed Dm Cough Syrup] 5 ml PO Q6HP PRN #240 ml PRN Reason: Cough Transmission Status: Pending to [facility] Amoxicillin [Amoxicillin 500mg Tab] 500 mg PO TID 10 Days #30 tab Transmission Status: Pending to [facility] Referrals: Saravanan Wagner MD [Primary Care Provider] - Forms: Work/School Release Time of Disposition: 10:06 Medical Decision Making - Medical Records Medical records reviewed: No: I reviewed the patient's medical records. - Cal Inquiry Pt receiving controlled substance: No Vital Signs: 10/18/21 09:44 Temperature 99.1 F Temperature Source Oral Pulse Rate [Left] 71 Respiratory Rate 17 Blood Pressure [Right Arm] 118/86 Blood Pressure Mean [Right Arm] 96 02 Sat by Pulse Oximetry 99 - Lab Data Lab Results 10/18/21 09:46: Strep Scn Rapid Clinic Positive A [facility] [place] HPI - General Stated complaint: sore throat, COLE, congestion Time Seen by Provider: 10/18/21 09:55 Mode of Arrival: Ambulatory Source of Information: Patient Limitations: No Limitations Description of Symptoms (Recalled from Triage Doc. by RN): patient comes in with complaints of sore throat, headache. symptoms began yesterday. patient has 4 children and they have all had strep within the past two weeks. HEENT Symptoms (Recalled from RN notes): Yes Resp Symptoms (Recalled from RN notes): No Skin Symptoms (Recalled from RN notes): No MS Symptoms (Recalled from RN notes): No Functional Status (Recalled from RN notes): n/a - History of Present Illness Provider Complaint: She states that for the past 2 days she has had sore throat and low grade fever. - Related Data Home Medications Medication Instructions Recorded Confirmed levonorgestrel-ethinyl estradiol 1 tab PO tab 10/19/20 07/29/21 0.1 mg-20 mcg tablet Previous Rx's Medication Instructions Recorded Amoxicillin [Amoxicillin 500mg Tab] 500 mg PO TID 10 Days #30 tab 10/18/21 Brompheniramine/Pseudoephed/Dm 5 ml PO Q6HP PRN #240 ml 10/18/21 [Bromfed Dm Cough Syrup] Allergies Allergy/AdvReac Type Severity Reaction Status Date / Time peanut Allergy Intermediate Hives, Verified 10/18/21 09:46 Itchy throat corn Allergy Verified 10/18/21 09:46 wheat Allergy Verified 10/18/21 09:46 - Worker's Comp Is this a Worker's Comp case?: No [facility] History - Hepatitis A Screen Attestation statement:: This patient has been screened for Hepatitis A risk factors. I have reviewed the patient's past medical history: Yes Medical History: Denies:: Diabetes Mellitus Type 2, Hypertension Other Surgeries: Yes: Amputation: No Fractures: No - Social History Smoking Status: Never smoker Alcohol Intake: never Alcohol Intake Frequency:: a few times a month Substance Use Type: denies use Occupational Status: other Family Hx:: No significant family history ROS Obtained: Yes All systems reviewed & no additional complaints - Constitutional Constitutional: Reports as per HPI - Eyes Eyes: Denies eye discharge - ENT Ears, Nose, Mouth, and Throat: Reports as per HPI - Cardiovascular Cardiovascular: Denies chest pain - Respiratory Respiratory: Denies chest congestion, Reports cough Physical Exam - General General appearance: alert, in no apparent distress - Head Head exam: atraumatic, normocephalic, normal inspection - Eye Eye exam: Present: normal appearance, PERRL, EOMI - ENT ENT exam: Present: mucous membranes
[2021-10-18 10:11] VITALS: BP 118/86; PULSE 71; RESP 17; TEMP 37.3
== END 2021-10-18 10:15 | disposition home or self-care (01) ==
PROVIDERS: Emergency Provider Nurse Practitioner Family; PCP Family Medicine
DX: J02.0 Streptococcal pharyngitis (principal)
CPT/HCPCS: 87880; 99212; G0463

== ENCOUNTER 2022-02-25 10:06 | Emergency (ER) | payer OTHER, SELFPAY ==
[2022-02-25] VITALS (8 sets, daily range): BP systolic 107–146; BP diastolic 53–96; PULSE 62–110; RESP 16–18; TEMP 36.6; O2SAT 96–100; BMI 20.7
--- NOTE | 2022-02-25 10:19 | HMH.EDGENADL ---
Discharge Plan Disposition Patient Disposition: Home, Self-Care Condition: Good Prescriptions Prescriptions: New promethazine 25 mg tablet 25 mg PO TID PRN (Reason: nausea and vomiting) Qty: 30 0RF No Action levonorgestrel-ethinyl estrad [Vienva] 0.1-20 mg-mcg tablet 1 tab PO sertraline 50 mg tablet 50 mg PO DAILY Referrals Follow up/Referrals: Saravanan Wagner MD [Primary Care Provider] - See instructions Clinical Impressions Clinical Impression: Gastroenteritis Instructions Patient Instructions: DI for Diarrhea and Traveler's Diarrhea -- Adult, Nausea and Vomiting-Adult, Promethazine Discharge ED Provider: Tomás Tirado General Adult HPI General Chief complaint: Nausea/Vomiting/Diarrhea Stated complaint: Vomiting,Diarrhea,chills Time Seen by Provider: 02/25/22 10:13 History of Present Illness HPI narrative: 31-year-old female with no significant past medical history, denies taking any new medication, presents with nausea, vomiting, diarrhea since this morning, multiple episodes of vomiting. She not tried any treatments for symptomatic relief prior to arrival here. But was worried about dehydration. She does report alcohol consumption last night however not a typical amount or anything different. Denies any known sick contacts, no fevers, dysuria, abdominal pain, no significant past abdominal surgical history. Related Data Home Medications Medication Instructions Recorded Confirmed levonorgestrel-ethinyl estradiol 1 tab PO 10/19/20 01/16/22 0.1 mg-20 mcg tablet (Vienva) sertraline 50 mg tablet 50 mg PO DAILY Depression 01/16/22 02/25/22 Previous Rx's Medication Instructions Recorded promethazine 25 mg tablet 25 mg PO TID PRN nausea and 02/25/22 vomiting #30 tabs Allergies Allergy/AdvReac Type Severity Reaction Status Date / Time peanut Allergy Intermediate Hives, Verified 01/16/22 10:30 Itchy throat corn Allergy Verified 01/16/22 10:30 wheat Allergy Verified 01/16/22 10:30 PFSH PFS Disclaimer: The information contained in this section may have been updated after the patient was seen, as this information can be updated by other users. Medical History Depression Vaginitis Women's annual routine gynecological examination Surgical History History of delivery Social History Smoking Status: Never smoker alcohol intake: never substance use type: denies use current occupational status: other Travel in the last 8 weeks: None ROS Obtained: Yes Systems reviewed as appropriate & no additional complaints except as documented Constitutional Constitutional: Reports system reviewed and no additional complaints, except as documented Eyes Eyes: Reports system reviewed and no additional complaints, except as documented ENT Ears, Nose, Mouth, and Throat: Reports system reviewed and no additional complaints, except as documented Cardiovascular Cardiovascular: Reports system reviewed and no additional complaints, except as documented Respiratory Respiratory: Reports system reviewed and no additional complaints, except as documented Gastrointestinal Gastrointestingal: Reports system reviewed and no additional complaints, except as documented Genitourinary Female Genitourinary: Reports system reviewed and no additional complaints, except as documented Musculoskeletal Musculoskeletal: Reports system reviewed and no additional complaints, except as documented Integumentary/Breasts Skin/Breast: Reports system reviewed and no additional complaints, except as documented Neurologic Neurologic: Reports system reviewed and no additional complaints, except as documented Endocrine Endocrine: Reports system reviewed and no additional complaints, except as documented Hematologic/Lymphatic Hen
[2022-02-25 10:25] LABS: Basophils % 0.2 % (0.1-2.0); Eosinophils # 0.2 K/mm3 (0.0-0.4); Eosinophils % 1.7 % (0.1-12.0); Hematocrit 41.4 % (37.0-47.0); Hemoglobin 14.2 g/dL (12.2-16.2); Lymphocytes % 7.7 % (10-50); Mean Corpuscular HGB Conc 34.2 g/dL (31.8-35.4); Mean Corpuscular Hemoglobin 30.8 pg (27.0-31.2); Mean Corpuscular Volume 89.9 fl (81-99); Mean Platelet Volume 8.4 fl (7.4-10.4); Monocytes # 0.2 K/mm3 (0.1-1.0); Monocytes % 1.6 % (1.7-9.3); Neutrophils # 11.7 K/mm3 (1.8-7.8); Neutrophils % 88.8 % (37.0-80.0); Platelet Count 311 K/mm3 (142-424); Red Cell Distribution Width 13.6 % (11.5-17.5); White Blood Count 13.1 K/mm3 (4.8-10.8)
[2022-02-25 10:30] LABS: Chloride 103 mmol/L (98-107); MANUAL DIFFERENTIAL MANUAL DIFFERENTIAL (MANUAL DIFF); Potassium 3.9 mmoL/L (3.5-5.1); Sodium 139 mmol/L (136-145)
[2022-02-25 10:32] LABS: Alanine Aminotransferase 37 U/L (12-78); Alkaline Phosphatase 70 U/L (38-126); Anion Gap 20.9 mEq/L (5-15); Aspartate Amino Transferase 42 U/L (14-36); Bilirubin,Total 0.8 mg/dl (0.2-1.3); Blood Urea Nitrogen 10 mg/dl (7-17); Carbon Dioxide 19 mmol/L (22.0-30.0); Estimated Glomerular Filt Rate 116 ml/min (>60); GFR (African American) 140 ML/MIN (>60)
[2022-02-25 10:33] LABS: Albumin Level 4.8 g/dl (3.5-5.0); Albumin/Globulin Ratio 1.5 (1.1-1.8); Calcium 8.6 mg/dl (8.4-10.2); Globulin 3.2 g/dL (1.3-3.2); Glucose 165 mg/dl (74-100); Lipase 44 U/L (23-300); Magnesium 1.5 mg/dl (1.6-2.3)
[2022-02-25 10:36] LABS: Coronavirus 19, PCR Not Detected (NotDetected); Influenza A, PCR Not Detected (NotDetected); Influenza B, PCR Not Detected (NotDetected)
[2022-02-25 10:42] LABS: HCG Qualitative, Serum Negative (Negative)
[2022-02-25 10:57] LABS: Lymphocytes % 5 % (10-50); Monocytes % 2 % (2-9); Neutrophils % 93 % (42-76); Total Cells Counted 100
[2022-02-25 10:58] LABS: RBC Morphology Normal
[2022-02-25 10:59] LABS: Platelet Estimate Normal
--- NOTE | 2022-02-25 11:22 | PC.NURSE ---
pt given another warm blanket, call light within reach. Pt states not able to void yet at this time
== END 2022-02-25 13:07 | disposition home or self-care (01) ==
PROVIDERS: Emergency Provider Emergency Medicine; PCP Family Medicine
DX: R11.2 Nausea with vomiting, unspecified (principal); R19.7 Diarrhea, unspecified; Z20.822 Contact with and (suspected) exposure to COVID-19; F32.A Depression, unspecified; Z79.899 Other long term (current) drug therapy; Z79.890 Hormone replacement therapy; Z91.010 Allergy to peanuts; Z91.018 Allergy to other foods
CPT/HCPCS: 80053; 83690; 83735; 84703; 85007; 85025; 96361; 96374; 96375; 99284; C9803; J2405; U0003; U0005

== ENCOUNTER 2023-06-11 09:27 | Outpatient (CLI) | payer OTHER, SELFPAY ==
[2023-06-11 11:02] LABS: HCG,Quantitative 1744 mIU/ml (0-5.42)
== END 2023-06-11 23:59 ==
LOC: LAB 09:28
PROVIDERS: PCP Physician Assistant; Visit Provider Obstetrics & Gynecology
DX: O03.9 Complete or unspecified spontaneous abortion without complication (principal)
CPT/HCPCS: 36415; 84702

== ENCOUNTER 2023-06-13 11:39 | Outpatient (CLI) | payer OTHER, SELFPAY ==
[2023-06-13 12:37] LABS: HCG,Quantitative 1380 mIU/ml (0-5.42)
== END 2023-06-13 23:59 ==
LOC: LAB 11:40
PROVIDERS: PCP Physician Assistant; Visit Provider Obstetrics & Gynecology
DX: Z33.2 Encounter for elective termination of pregnancy (principal)
CPT/HCPCS: 36415; 84702

== ENCOUNTER 2023-07-20 08:09 | Emergency (ER) | payer OTHER, SELFPAY ==
[2023-07-20 08:40] VITALS: BP 122/81; PULSE 85; RESP 20; TEMP 36.9; O2SAT 99; BMI 26.8
--- NOTE | 2023-07-20 08:50 | ED_ITS ---
Discharge Plan Disposition Patient Disposition: Home, Self-Care Condition: Good Prescriptions Prescriptions: New amoxicillin 500 mg capsule 500 mg PO Q8H Qty: 30 0RF fluticasone propionate [Flonase Allergy Relief] 50 mcg/actuation spray,suspension 2 spray intranasal DAILY Qty: 16 0RF Rx Instructions: administer into each nostril No Action sertraline 100 mg tablet 100 mg PO DAILY hydroxyzine HCl 25 mg tablet 50 mg PO HS Patient Comments: TAKE 1 TO 2 TABLETS BY MOUTH ONCE DAILY AT NIGHT NEEDED Lo Loestrin Fe 1 mg-10 mcg (24)/10 mcg (2) tablet 1 tab PO DAILY Qty: 84 3RF Referrals Follow up/Referrals: Cynthia Pate PA [Primary Care Provider] - See instructions Activity Restrictions/Add. Instructions Additional Instructions/Restrictions: *Monitor Temp, Over the counter Motrin or Tylenol as directed/as needed Tylenol every 4 hours and Motrin every 6 hours (as long as your family doctor has told you that you can take it) for fever or pain. and straight to ER if unable to lower temp less than 101.0 after medication given *Warm salt water gargles may help to soothe the throat *Throat Lozenges? *Warm fluids like tea with honey may help to soothe the throat? *Sleep elevated *Humidifier/Vaporizer *Flonase 2 sprays in each nostril daily but be aware that it may take 2-3 days before you notice improvement *Bromfed may cause drowsiness. Know how it effects you (your child) before driving, caring for small child, or sending your child to school. Not other antihistamines/allergy medications while taking bromfed Your throat swab was sent for culture. Those results are typically sent to your primary care. Be sure to follow up in 2-3 days with your family doctor/primary care physician if no improvement so they can review those result and treat if necessary. If you don?t have a primary care doctor, I recommend you get one but in the mean time, you will have to return to a walk in clinic Follow up IMMEDIATELY for new or worsening symptoms or no Noticeable improvement over the next 48-72 hours. 911 for difficulty breathing or swallowing Clinical Impressions Clinical Impression: Pharyngitis Qualifiers: Pharyngitis/tonsillitis etiology: unspecified etiology Qualified Code(s): J02.9 - Acute pharyngitis, unspecified Instructions Patient Instructions: Sore Throat, DI for Ear Pain-Adult Discharge ED Provider: Reva Wynne Rehan [facility] [[email or web address]] HPI General Stated complaint: sore throat and right ear pain Time Seen by Provider: 07/20/23 08:50 History of Present Illness Provider Complaint: Patient states that her kids has been having strep throat for the last couple of weeks and now she has started with sore throat and hurts when she swallows States today her throat was hurting bad and she was having pain in her right ear states her throat hurts and tapia when she swallows and feels like the right side of her throat feels more swollen than the left Related Data Home Medications Medication Instructions Recorded Confirmed hydroxyzine HCl 25 mg tablet 50 mg PO HS 01/11/23 06/13/23 sertraline 100 mg tablet 100 mg PO DAILY 01/11/23 06/13/23 Previous Rx's Medication Instructions Recorded norethindrone 1 mg-ethinyl 1 tab PO DAILY #84 tabs 06/13/23 estradiol 10 mcg (24)-iron 10 mcg(2) tablet (Lo Loestrin Fe) amoxicillin 500 mg capsule 500 mg PO Q8H #30 caps 07/20/23 fluticasone propionate 50 2 spray intranasal DAILY #16 grams 07/20/23 mcg/actuation nasal spray,suspension (Flonase Allergy Relief) Allergies Allergy/AdvReac Type Severity Reaction Status Date / Time peanut Allergy Intermediate Hives, Verified 06/13/23 11:23 Itchy throat corn Allergy Verified 06/13/23 11:23 wheat Allergy Verified 06/13/23 11:23 [facility] Disclaimer: The information contained in this section may have been updated after the patient was seen, as this information can be updated by other users. Medical History (Updated 07/20/23 @ 08:56 by Reva Wynne APRN) Status post elective Hx of Depression Vaginitis Surgical History History of delivery Family History Other No significant family history Social History Smoking Status: Never smoker alcohol intake: never substance use type: denies use current occupational status: other Travel in the last 8 weeks: None ROS Obtained: Yes All systems reviewed & no additional complaints except as documented and Yes Systems reviewed as appropriate & no additional complaints except as documented Constitutional Constitutional: Reports system reviewed and no additional complaints, except as documented and Reports as per HPI ENT Ears, Nose, Mouth, and Throat: Reports system reviewed and no additional complaints, except as documented, Reports as per HPI, Reports otalgia and Reports sore throat Cardiovascular Cardiovascular: Reports system reviewed and no additional complaints, except as documented and Reports as per HPI Respiratory Respiratory: Reports system reviewed and no additional complaints, except as documented and Reports as per HPI Gastrointestinal Gastrointestingal: Reports system reviewed and no additional complaints, except as documented and as per HPI Physical Exam General General appearance: alert and in no apparent distress ENT ENT exam: Present mucous membranes moist Expanded ENT Exam TM/Canal exam: Right TM: bulging Nose exam: Absent sinus tenderness Throat exam: Present tonsillar erythema Respiratory Respiratory exam: Present normal lung sounds bilaterally; Absent respiratory distress or wheezes Cardiovascular Cardiovascular exam: Present regular rate, normal rhythm and normal heart sounds Neurological Exam Neurological exam: Present alert, oriented X3 and normal gait Medical Decision Making Acl Inquiry Pt receiving controlled substance: No Cal was queried for this patient: No Lab Data Lab results reviewed: Yes I reviewed the patient's lab results.
[2023-07-20 09:11] LABS: UTC Strep Screen (Rapid) Negative (Negative)
[2023-07-20 09:15] VITALS: BP 122/81; PULSE 85; RESP 99; TEMP 36.9; O2SAT 20
== END 2023-07-20 09:21 | disposition home or self-care (01) ==
PROVIDERS: Emergency Provider Nurse Practitioner; PCP Physician Assistant
DX: J02.9 Acute pharyngitis, unspecified (principal); H92.01 Otalgia, right ear
CPT/HCPCS: 87880; 99212; 99214; G0463

== ENCOUNTER 2023-09-05 13:12 | Emergency (ER) | payer OTHER, SELFPAY ==
[2023-09-05 13:20] VITALS: BP 139/85; PULSE 94; RESP 20; TEMP 37.2; O2SAT 98; BMI 27.3
--- NOTE | 2023-09-05 13:27 | ED_ITS ---
Discharge Plan Disposition Patient Disposition: Home, Self-Care Condition: Good Prescriptions Prescriptions: New amoxicillin 875 mg tablet 875 mg PO BID Qty: 20 0RF No Action sertraline 100 mg tablet 100 mg PO DAILY hydroxyzine HCl 25 mg tablet 50 mg PO HS Patient Comments: TAKE 1 TO 2 TABLETS BY MOUTH ONCE DAILY AT NIGHT NEEDED Lo Loestrin Fe 1 mg-10 mcg (24)/10 mcg (2) tablet 1 tab PO DAILY Qty: 84 3RF amoxicillin 500 mg capsule 500 mg PO Q8H Qty: 30 0RF fluticasone propionate [Flonase Allergy Relief] 50 mcg/actuation spray,suspension 2 spray intranasal DAILY Qty: 16 0RF Rx Instructions: administer into each nostril hydroxyzine HCl 25 mg tablet 25 mg PO DAILY Patient Comments: TAKE 1 TO 2 TABLETS BY MOUTH ONCE DAILY AT NIGHT NEEDED FOR 30 DAYS Lo Loestrin Fe 1 mg-10 mcg (24)/10 mcg (2) tablet 1 tab PO DAILY Patient Comments: TAKE 1 TABLET BY MOUTH ONCE DAILY Referrals Follow up/Referrals: Cynthia Pate PA [Primary Care Provider] - See instructions Activity Restrictions/Add. Instructions Additional Instructions/Restrictions: *Monitor Temp, Over the counter Motrin or Tylenol as directed/as needed Tylenol every 4 hours and Motrin every 6 hours (as long as your family doctor has told you that you can take it) for fever or pain. and straight to ER if unable to lower temp less than 101.0 after medication given *Warm salt water gargles may help to soothe the throat *Throat Lozenges? *Warm fluids like tea with honey may help to soothe the throat? *Sleep elevated *Humidifier/Vaporizer *Take antibiotics as prescribed Over the counter Chlorseptic spray may help with throat pain Your throat swab was sent for culture. Those results are typically sent to your primary care. Be sure to follow up in 2-3 days with your family doctor/primary care physician if no improvement so they can review those result and treat if necessary. If you don?t have a primary care doctor, I recommend you get one but in the mean time, you will have to return to a walk in clinic Follow up IMMEDIATELY for new or worsening symptoms or no Noticeable improvement over the next 48-72 hours. 911 for difficulty breathing or sw allowing Clinical Impressions Clinical Impression: Pharyngitis Stand Alone Forms Stand Alone Forms: Work/School Release Instructions Patient Instructions: Sore Throat, Amoxicillin Discharge ED Provider: Reva Wynne [facility] [place] HPI General Stated complaint: chills/fever, sore throat Mode of Arrival: Ambulatory Source of Information: Patient Limitations: No Limitations Time Seen by Provider: 09/05/23 13:27 Description of Symptoms (Recalled from Triage Doc. by RN): PATIENT C/O SORE THROAT, CHILLS, FEVER AND HEADACHE X 2 DAYS HEENT Symptoms (Recalled from RN notes): Yes Resp Symptoms (Recalled from RN notes): No Skin Symptoms (Recalled from RN notes): No MS Symptoms (Recalled from RN notes): No Functional Status (Recalled from RN notes): WNL History of Present Illness Provider Complaint: Patient states that she has been having sore throat, fever, and headache States that her throat hurts to swallow and has continued to get worse States that she has been using some over the counter throat spray but not helping much and today she noticed blistery like patches on her throat so she came in to get checked Related Data Home Medications Medication Instructions Recorded Confirmed hydroxyzine HCl 25 mg tablet 50 mg PO HS 01/11/23 06/13/23 sertraline 100 mg tablet 100 mg PO DAILY 01/11/23 06/13/23 hydroxyzine HCl 25 mg tablet 25 mg PO DAILY 09/05/23 09/05/23 norethindrone 1 mg-ethinyl 1 tab PO DAILY 09/05/23 09/05/23 estradiol 10 mcg (24)-iron 10 mcg(2) tablet (Lo Loestrin Fe) Previous Rx's Medication Instructions Recorded norethindrone 1 mg-ethinyl 1 tab PO DAILY #84 tabs 06/13/23 estradiol 10 mcg (24)-iron 10 mcg(2) tablet (Lo Loestrin Fe) amoxicillin 500 mg capsule 500 mg PO Q8H #30 caps 07/20/23 fluticasone propionate 50 2 spray intranasal DAILY #16 grams 07/20/23 mcg/actuation nasal spray,suspension (Flonase Allergy Relief) amoxicillin 875 mg tablet 875 mg PO BID #20 tabs 07/10/24 Allergies Allergy/AdvReac Type Severity Reaction Status Date / Time peanut Allergy Intermediate Hives, Verified 06/13/23 11:23 Itchy throat corn Allergy Verified 06/13/23 11:23 wheat Allergy Verified 06/13/23 11:23 Worker's Comp Is this a Worker's Comp case?: No [facility] Disclaimer: The information contained in this section may have been updated after the patient was seen, as this information can be updated by other users. Medical History (Updated 09/05/23 @ 14:28 by Reva Wynne APRN) Status post elective Hx of Depression Vaginitis Surgical History History of delivery Family History Other No significant family history Social History Smoking Status: Never smoker alcohol intake: never substance use type: denies use current occupational status: other Travel in the last 8 weeks: None ROS Obtained: Yes All systems reviewed & no additional complaints except as documented and Yes Systems reviewed as appropriate & no additional complaints except as documented Constitutional Constitutional: Reports system reviewed and no additional complaints, except as documented, Reports as per HPI, Reports body ache, Reports chills, Reports fever(s) and Reports headache(s) ENT Ears, Nose, Mouth, and Throat: Reports system reviewed and no additional complaints, except as documented, Reports as per HPI, Reports headache(s) and Reports sore throat Cardiovascular Cardiovascular: Reports system reviewed and no additional complaints, except as documented and Reports as per HPI Respiratory Respiratory: Reports system reviewed and no additional complaints, except as documented and Reports as per HPI Gastrointestinal Gastrointestingal: Reports system reviewed and no additional complaints, except as documented and as per HPI Genitourinary Female Genitourinary: Reports system reviewed and no additional complaints, except as documented and Reports as per HPI Musculoskeletal Musculoskeletal: Reports system reviewed and no additional complaints, except as documented and Reports as per HPI Neurologic Neurologic: Reports headache(s) Physical Exam General General appearance: alert and in no apparent distress ENT ENT exam: Present mucous membranes moist Expanded ENT Exam Throat exam: Present tonsillar erythema and tonsillar exudate Respiratory Respiratory exam: Present normal lung sounds bilaterally; Absent respiratory distress or wheezes Cardiovascular Cardiovascular exam: Present regular rate, normal rhythm and normal heart sounds Neurological Exam Neurological exam: Present alert, oriented X3 and normal gait Medical Decision Making Cal Inquiry Pt receiving controlled substance: No Cal was queried for this patient: No Vital Signs: 09/05/23 13:20 Temperature 99.0 F Temperature Source Oral Pulse Rate [Left Brachial] 94 H Respiratory Rate 20 Blood Pressure [Left Arm] 139/85 Blood Pressure Mean [Left Arm] 103 Blood Pressure Source [Left Arm] Automatic Cuff Blood Pressure Position [Left Arm] Sitting 02 Sat by Pulse Oximetry 98 Oxygen Delivery Method Room Air Lab Data Lab results reviewed: Yes I reviewed the patient's lab results.
[2023-09-05 13:34] LABS: UTC Strep Screen (Rapid) Negative (Negative)
[2023-09-05 14:24] LABS: Monoscreen (Rapid) Negative (Negative)
[2023-09-05 14:29] VITALS: BP 139/85; PULSE 94; RESP 20; TEMP 37.2; O2SAT 98
== END 2023-09-05 14:32 | disposition home or self-care (01) ==
PROVIDERS: Emergency Provider Nurse Practitioner; PCP Physician Assistant
DX: J02.9 Acute pharyngitis, unspecified (principal); R50.9 Fever, unspecified; R51.9 Headache, unspecified
CPT/HCPCS: 86318; 87880; 99212; 99214; G0463

== ENCOUNTER 2023-09-12 09:40 | Outpatient (CLI) | payer OTHER, SELFPAY ==
[2023-09-12] MEDS: cefTRIAXone 500MG VIAL 500 MG IM (10:14)
[2023-09-12 10:15] VITALS: BP 134/81; PULSE 72; RESP 18; TEMP 37; O2SAT 100
== END 2023-09-12 10:30 | disposition home or self-care (01) ==
LOC: INF 09:42
PROVIDERS: PCP Physician Assistant; Visit Provider Obstetrics & Gynecology
DX: Z20.2 Contact with and (suspected) exposure to infections with a predominantly sexual mode of transmission (principal); Z79.2 Long term (current) use of antibiotics
CPT/HCPCS: 96372; J0696

== ENCOUNTER 2024-05-28 19:03 | Outpatient (CLI) | payer OTHER, SELFPAY | END 2024-05-28 23:59 | disposition home or self-care (01) | LOC: LAB.DROPOF 05-30 10:11 | PROVIDERS: PCP Nurse Practitioner Family; Visit Provider Nurse Practitioner Family | DX: R30.0 Dysuria (principal) | CPT/HCPCS: 87086; 87088; 87186 ==